=== PATIENT | female | born 1970 | race Caucasian/White ===

== ENCOUNTER 2024-04-15 07:54 | Emergency (ER) | payer OTHER, SELFPAY ==
[2024-04-15] VITALS (8 sets, daily range): BP systolic 132–156; BP diastolic 87–101; PULSE 53–72; RESP 12–20; TEMP -17.7–37.2; O2SAT 98–100; BMI 16.3
--- NOTE | ~2024-04-15 | XR_ITS ---
EXAMINATION: XR SHOULDER, RIGHT CLINICAL INFORMATION: Right shoulder pain after a fall COMPARISON: None available. TECHNIQUE: Three views of the right shoulder. FINDINGS: No fracture or malalignment. 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 The humeral head is superiorly subluxed which may indicate a supraspinatus tendon tear. Consider MRI for further evaluation. XR/XR shoulder RT min 2V IMPRESSION: No fracture or malalignment. Superior subluxation of the humeral head may indicate a supraspinatus tendon tear. Consider MRI for further evaluation.
--- NOTE | 2024-04-15 08:32 | PC.NURSE ---
pt is alert and oriented, skin appropriate for ethnicity, respiration even and unlabored, pt is acting slightly erotic at times-yelling out and squirming around, states about three weeks ago notted off because thinks her methadon dose being to high and fell on her right shoulder-having lots of pain the right shoulder now with limited rang of motion , no bruising or deformity noted, pt also states missing her last two doses of methadone because did not have transportation- pt did come with a last dose letter from the [facility] in [place]. vs stable
--- NOTE | 2024-04-15 08:39 | ED.GENADULT ---
HPI - General Adult General Chief complaint: General Medical Stated complaint: FALL 2DAYS AGO,RUE PAIN,MISSED/METHADONE,WITHDRAWA Time Seen by Provider: 04/15/24 08:02 Source: patient, EMS, RN notes reviewed and old records reviewed Mode of arrival: EMS History of Present Illness ED Provider: Kaylee Navarrete PA-C HPI narrative: 53-year-old female with a past medical history of substance abuse on Methadone presenting to the ED planning of right shoulder pain s/p fall 2-3 weeks ago onto right shoulder. Denies head trauma. States was having issues with nodding out due to Methadone dose being too high, states was on 100mg however was making her too lethargic and dose was adjusted to 81mg which she is currently taking. Reports missing her Methadone 3 days including today due to transportation issues, receives at [facility]. Reports withdrawal symptoms. Denies headache, back pain, abdominal pain, nausea/vomiting. Does report crack cocaine use Related Data Allergies Allergy/AdvReac Type Severity Reaction Status Date / Time codeine [CODEINE] Allergy Intermediate RASH Verified 04/15/24 08:18 Sulfa (Sulfonamide Allergy Intermediate RASH Verified 04/15/24 08:18 Antibiotics) [SULFA (SULFONAMIDE ANTIBIOTICS)] Estrogens Allergy Unknown ( Verified 04/15/24 08:18 CONTROL) PULMONARY EMBOLISM haloperidol [Haldol] Allergy Unknown Unknown Verified 04/15/24 08:18 From HALDOL Allergy Unknown DYSTONIC Uncoded 07/03/20 16:26 From WELLBUTRIN Allergy Unknown UNK Uncoded 07/03/20 16:26 Review of Systems Review of Systems: Constitutional: No Fever, No Chills, No Fatigue, No Malaise ENT/Mouth: No Ear Pain, No Nasal Congestion, No sore throat, No Rhinorrhea, No Swallowing Difficulty Eyes: No Eye Pain, No Swelling, No Redness, No Vision Changes Cardiovascular: No Chest Pain, No SOB Respiratory: No Cough, No Sputum, No Dyspnea Gastrointestinal: No Nausea, No Vomiting, No Diarrhea, No Constipation, No Abdominal pain Musculoskeletal: + joint pain, No Myalgias, No Joint Swelling Skin: No Skin Lesions, No rash Neuro: No Weakness, No Dizziness, No Headache Psych: No Anxiety/Panic, No Depression, No SI/HI/AH/VH, + Social Issues Yes all other systems are reviewed and are negative Constitutional: Constitutional: Reports as per [facility] Past Medical History Attestation statement: The following information was validated with the patient. Source: old records reviewed Social History Social History Smoked in Last 30 Days: Yes Use of substances other than those prescribed or required for medical reasons: Yes Substance Use Type: Crack/Cocaine Advance Directives: No Advance Directives Information Provided: Yes Do you have a plan to hurt others: No Plan Physical Exam ED Vital Signs: Vital Signs - 24 hr 04/15/24 08:14 04/15/24 08:28 04/15/24 08:53 Temperature 99.0 F Pulse Rate 62 58 Respiratory Rate 20 20 Blood Pressure 132/94 H 148/87 H Pulse Oximetry 98 Oxygen Delivery Method Room Air 04/15/24 08:55 04/15/24 11:47 Temperature 97.9 F Pulse Rate 55 53 Respiratory Rate 12 Blood Pressure 146/87 H 132/88 Pulse Oximetry 98 Oxygen Delivery Method Room Air BMI result Body Mass Index 16.3 Const General: cooperative, healthy appearing and no acute distress Orientation/consciousness: patient oriented x3 Limitations: no limitations HENMT Head: Yes normal to inspection and Yes atraumatic Ears: hearing grossly normal bilaterally General nose exam: Normal external nose present Face and sinus: Yes normal facial exam Eyes General: appearance normal, both eyes and all related structures EOM: EOMs intact bilaterally Neck Neck: Yes normal visual inspection and Yes no meningeal signs Resp Effort & Inspection: normal respiratory effort and no respiratory distress Auscultation: clear to auscultation bilaterally Cardio Rate: regular rate Heart sounds: S1 normal heart sound present and S2 normal heart sound present GI Inspection: Yes normal to inspection Palpation (GI): Soft to palpation, nontender, no guarding and not rigid General: Yes no CVA tenderness Back/Spine/Pelvis Other: No midline cervical/thoracic/lumbar spinous tenderness/step-off or deformity Back: no CVA tenderness Skin Rashes: no rashes Wounds: no wounds Neuro General: patient oriented x3, tone normal, moves all extremities, no meningeal signs and CN's II-XI intact bilaterally Cranial nerves: Yes CN's II-XII intact bilaterally Extrem Other: Right shoulder without appreciable deformity. Diffusely tender to palpation. No erythema/warmth or ecchymosis. Limited ROM secondary to pain. Neurovascularly intact distally Course Course Course Narrative: -0942--on re-evaluation patient is sleeping/lethargic, will only give 40 mg of Methadone. This was discussed with pharmacy, who is also confused with last dose letter. -1042--labs reassuring. UA with blood, not infected. Tox screen positive for methadone, cocaine and THC XR shoulder RT min 2V IMPRESSION: No fracture or malalignment. Superior subluxation of the humeral head may indicate a supraspinatus tendon tear. Consider MRI for further evaluation. > patient with known tendon tear per , dx about 2 mos ago -orthostatic vital signs negative -1047--on re-eval patient sleeping. -1348--patient is sleeping comfortably, easily arousable, plan to DC with Narcan to go Results discussed with patient including worrisome signs and symptoms and strict return precautions, and when to return to the emergency department. They verbalized understanding and feel safe for discharge at this time. Medications Administered Discontinued Medications Generic Name Dose Route Start Last Admin Trade Name Conrado PRN Reason Stop Dose Admin Methadone HCl 40 mg 04/15/24 08:38 04/15/24 09:50 Methadone Hcl 20 Mg/2 Ml Oral.Conc PO 04/15/24 08:39 40 mg ONCE ONE Administration Medical Decision Making Medical Decision Making [facility] Narrative: 53-year-old female with a past medical history of substance abuse on Methadone presenting to the ED planning of right shoulder pain s/p fall 2-3 weeks ago onto right shoulder. On exam vital signs stable, NAD, nontoxic appearing, physical exam as noted above. Patient did present with last dose letter, however letter is confusing & unclear with patients take home's. Concern for substance abuse vs shoulder fracture vs strain. Lower suspicion for ACS/PE or ICH Case discussed with [facility] >if patient acting appropriate can give full-dose. Plan: Labs, EKG, UA, BLUE, orthostatics Please refer to course for remaining clinical decision making, interpretation of labs/imaging results, and discussions with consultants and/or family members. Differential Diagnosis Differential Diagnoses: The differential diagnosis associated with the presentation includes As above Admission/Observation Consideration of admission/observation: Escalation of care including admission/observation considered Consult Healthcare Provider Management of the patient was discussed with: Signal Integrity Engineer (addiction medicine) Lab Data [facility] Lab Attestation statement: I reviewed the patient's lab results. 04/15/24 09:43 04/15/24 09:43 Labs: Lab Results 04/15/24 04/15/24 Range/Units 09:21 09:43 WBC 8.7 (4.8-10.8) X10*3/uL RBC 4.57 (4.20-5.50) X10*6/uL Hgb 13.4 (12.0-16.0) g/dl Hct 41.7 (37.0-47.0) % MCV 91.2 (80.0-98.0) fL MCH 29.3 (27.0-33.0) pg MCHC 32.1 (31.0-35.0) g/dl RDW 14.6 (11.0-16.0) % Plt Count 216 (160-400) X10*3/uL MPV 9.7 (9.4-12.3) fL Immature Gran % (Auto) 0.3 (0.0-0.4) % Neut % (Auto) 70.3 (45-73) % Lymph % (Auto) 18.0 L (20-40) % [place] % (Auto) 10.1 (2-11) % Eos % (Auto) 0.7 (0-4) % Baso % (Auto) 0.6 (0-2) % Lymph # (Auto) 1.6 (1.2-4.9) X10*3/uL [place] # (Auto) 0.9 (0.1-1.2) X10*3/uL Eos # (Auto) 0.1 (0.0-0.4) X10*3/uL Baso # (Auto) 0.1 (0.0-0.2) X10*3/uL Abs Immat Gran (auto) 0.03 (0.00-0.03) X10*3/uL Absolute Neuts (auto) 6.1 (2.0-8.3) x10*3/uL Absolute Nucleated RBC 0.000 (0.0-0.012) X10*3/uL Nucleated RBC % (auto) 0.0 (0.0-0.2) /100WBC Sodium 142 (135-145) mmol/L Potassium 4.1 (3.3-5.1) mmol/L Chloride 108 (96-108) mmol/L Carbon Dioxide 27 (22-29) mmol/L Anion Gap 11 L (12-20) BUN 17 H (9-16) mg/dL Creatinine 0.77 (0.5-1.4) mg/dL Estim Creat Clear Calc 65.5 Estimated GFR > 60 Random Glucose 114 (60-115) mg/dL Calcium 10.0 (8.4-10.2) mg/dL Magnesium 2.3 (1.6-2.6) mg/dL Total Bilirubin 0.7 (0.0-1.0) mg/dL Direct Bilirubin 0.3 (0.0-0.5) mg/dL AST 35 H (5-31) U/L ALT 35 H (0-31) U/L Alkaline Phosphatase 75 (39-117) U/L Total Protein 8.8 H (6.5-8.0) g/dL Albumin 4.2 (3.5-5.0) g/dL Urine Color Yellow Urine Appearance Clear Urine pH 6.5 (5.0-9.0) Ur Specific [place] 1.015 (1.005-1.025) Urine Protein Negative (Neg-Trace) mg/dL Urine Glucose (UA) Negative (Negative) mg/dL Urine Ketones Negative (Negative) mg/dL Urine Blood Small (1+) H (Negative) Urine Nitrite Negative (Negative) Ur Leukocyte Esterase Negative (Negative) Urine RBC 6-10 H (0-2) /HPF Urine WBC 0-5 (0-5) /HPF Ur Squamous Epith Cells 0-2 (0-2) /HPF Urine Bacteria None Seen (None Seen) Hyaline Casts 0-2 (0-2) /LPF Urine Opiates Screen Not Detected (Not Detect) Ur Buprenorphine Scrn Not Detected (Not Detect) ng/mL Ur Oxycodone Screen Not Detected (Not Detect) ng/mL Urine Methadone Screen Positive H (Not Detect) ng/mL Urine Fentanyl Screen Not Detected (Not Detect) Ur Barbiturates Screen Not Detected (Not Detect) Ur Phencyclidine Scrn Not Detected (Not Detect) Ur Amphetamines Screen Not Detected (Not Detect) U Benzodiazepines Scrn Not Detected (Not Detect) Urine Cocaine Screen POSITIVE H (Not Detect) U Marijuana (THC) Screen POSITIVE H (Not Detect) Independent Interpretation I performed an independent interpretation of an: EKG and Plain X-Ray Radiology Impression Discussion of test interpretation with radiology: I have reviewed the radiologist's reading. Independent Historian Clinical information obtained from an independent historian. History obtained from or confirmed by: EMS External Record Review External record reviewed: Inpatient record, Office record, Outpatient record, Prior outpatient labs, Prior outpatient radiology, Primary care record and Outside ED record Tests considered The following testing was considered but not selected: As above Social Determinants Patient?s care significantly limited by Social Determinants of Health including: Inadequate housing, Low income, Alcoholism and drug addiction in family, Problems related to primary support group and Unemployment Discharge Plan Discharge Clinical Impression: Methadone dependence, Pain in right shoulder Patient Disposition: Home, Self-Care Instructions: Arthralgia (ED), Narcotic Use Disorder (ED) Additional Instructions: Continue taking your home prescribed medications. Your blood work is reassuring. Your x-ray is suspicious for supraspinatus tendon tear. Please follow-up with orthopedics Avoid alcohol and drug use this can kill you Referrals: [facility] [Provider Group] Print Language: [place]
--- NOTE | 2024-04-15 09:22 | PC.NURSE ---
pt will be intermittent very sleep then wake up yelling and squirming around
[2024-04-15 09:31] LABS: Appearance Urine Clear; Color Urine Yellow; Glucose Urine UA Negative (Negative); Leukocyte Esterase Urine Negative (Negative); Nitrite Urine Negative (Negative); PH 6.5 (5.0-9.0); Specific Gravity - Urine 1.015 (1.005-1.025); UMIC TRIGGER UACC YES; Urine Blood Small (1+) (Negative); Urine Ketones Negative (Negative); Urine Protein Negative (Neg-Trace)
[2024-04-15 09:40] LABS: Amphetamine Screen Urine Not Detected (Not Detect); Bacteria Urine None Seen (None Seen); Barbiturates, Urine Not Detected (Not Detect); Benzodiazepines Screen Urine Not Detected (Not Detect); Buprenorphine Scr Not Detected (Not Detect); Cannabinoid Screen Urine POSITIVE (Not Detect); Cocaine Screen Urine POSITIVE (Not Detect); Fentanyl, urine Not Detected (Not Detect); Hyaline Casts Urine 0-2 /LPF (0-2); Methadone Screen, Urine Positive (Not Detect); Opiate Screen Urine Not Detected (Not Detect); Oxycodone Screen Urine Not Detected (Not Detect); Phencyclidine Screen Urine Not Detected (Not Detect); Squamous Epithelial Cell Urine 0-2 /HPF (0-2); WBC Urine 0-5 /HPF (0-5)
[2024-04-15 09:46] LABS: MANUAL DIFF FLAG NO
[2024-04-15 09:48] LABS: Basophils Absolute Auto 0.1 X10*3/uL (0.0-0.2); Basophils Percent Auto 0.6 % (0-2); Eosinophils Absolute Auto 0.1 X10*3/uL (0.0-0.4); Eosinophils Percent Auto 0.7 % (0-4); Hematocrit 41.7 % (37.0-47.0); Hemoglobin 13.4 g/dl (12.0-16.0); Imm Gran Abs Auto 0.03 X10*3/uL (0.00-0.03); Imm Gran Pct Auto 0.3 % (0.0-0.4); Lymphocytes Absolute Auto 1.6 X10*3/uL (1.2-4.9); Mean Corpuscular HGB Conc 32.1 g/dl (31.0-35.0); Mean Corpuscular Hemoglobin 29.3 pg (27.0-33.0); Mean Corpuscular Volume 91.2 fL (80.0-98.0); Mean Platelet Volume 9.7 fL (9.4-12.3); Monocytes Absolute Auto 0.9 X10*3/uL (0.1-1.2); Monocytes Percent Auto 10.1 % (2-11); Neutrophils Absolute Auto 6.1 x10*3/uL (2.0-8.3); Neutrophils Percent Auto 70.3 % (45-73); Platelet Count 216 X10*3/uL (160-400); Red Blood Count 4.57 X10*6/uL (4.20-5.50); Red Cell Distribution Width 14.6 % (11.0-16.0); White Blood Count 8.7 X10*3/uL (4.8-10.8)
[2024-04-15] MEDS: methADONE HCl 20 MG/2 ML ORAL.CONC 40 MG PO (09:50)
[2024-04-15 10:08] LABS: Alanine Aminotransferase 35 U/L (0-31); Albumin Level 4.2 g/dL (3.5-5.0); Alkaline Phosphatase 75 U/L (39-117); Anion Gap 11 (12-20); Aspartate Amino Transferase 35 U/L (5-31); Bilirubin Direct 0.3 mg/dL (0.0-0.5); Bilirubin Total 0.7 mg/dL (0.0-1.0); Blood Urea Nitrogen 17 mg/dL (9-16); Carbon Dioxide 27 mmol/L (22-29); Chloride 108 mmol/L (96-108); Creatinine Clr Calc Pharmacy 65.5; Estimated Glomerular Filt Rate > 60; Glucose Random 114 mg/dL (60-115); Magnesium 2.3 mg/dL (1.6-2.6); Potassium 4.1 mmol/L (3.3-5.1); Sodium 142 mmol/L (135-145); Total Protein 8.8 g/dL (6.5-8.0)
--- NOTE | 2024-04-15 12:13 | PC.NURSE ---
pt continuos on sleeping, respirations even and unlabored
[2024-04-15] MEDS: Naloxone HCl Nasal TAKE HOME 4 MG SPRAY 8 MG NOSTRILALT (14:26)
== END 2024-04-15 16:20 | disposition home or self-care (01) ==
PROVIDERS: Physician Assistant; Emergency Provider Emergency Medicine
DX: M25.511 Pain in right shoulder (principal); F11.23 Opioid dependence with withdrawal; Z79.899 Other long term (current) drug therapy
CPT/HCPCS: 36415; 73030; 80048; 80076; 80307; 81001; 83735; 85025; 99284